=== PATIENT | male | born 1980 | race Caucasian/White ===

== ENCOUNTER 2024-02-01 15:12 | Emergency (ER) | payer OTHER ==
[2024-02-01] MEDS ORDERED: Lidocaine 1% PF 5 ML VIAL ONE ×2 (15:17→15:29)
[2024-02-01] MEDS ORDERED: Boostrix 0.5 ML (Tdap) VIAL (>/=7 yrs of age) ONE (15:17)
[2024-02-01] MEDS ORDERED: Bacitracin 1 PK ONE (15:19)
[2024-02-01] MEDS ORDERED: CEFAZOLIN 1 GM VIAL ONE (16:37)
[2024-02-01] MEDS ORDERED: Sterile Water 10 ML ONE (16:41)
== END 2024-02-01 17:05 | disposition home or self-care (01) ==
LOC: BURERS 15:12
DX: S68.022A Partial traumatic metacarpophalangeal amputation of left thumb, initial encounter (principal); F17.210 Nicotine dependence, cigarettes, uncomplicated; Z23 Encounter for immunization; W26.8XXA Contact with other sharp object(s), not elsewhere classified, initial encounter
CPT/HCPCS: 12001; 90471; 90715; 96372; J0690

== ENCOUNTER 2025-06-06 14:51 | Emergency (ER) | payer OTHER ==
[2025-06-06] MEDS ORDERED: Bacitracin 1 PK ONE (15:23)
== END 2025-06-06 15:50 | disposition home or self-care (01) ==
LOC: BURERS 14:51
DX: S51.811A Laceration without foreign body of right forearm, initial encounter (principal); F17.220 Nicotine dependence, chewing tobacco, uncomplicated; W20.8XXA Other cause of strike by thrown, projected or falling object, initial encounter
CPT/HCPCS: 99282